=== PATIENT | male | born 1965 | race Caucasian/White ===

== ENCOUNTER → 2018-12-30 | Day surgery (SDC) | payer BC ==
[~2018-12-30] MED LIST: AMLODIPINE BESYL5 MG PO; FISH OIL 1,0001 EAC2 PO; FUROSEMIDE40 MG PO; KETAMINE HCL INJ 50 MG/ML 10 ML VIAL ONE; LIDOCAINE HCL 2% LOCAL INJ 5 ML SDV VIAL INJ ONE; LOSARTAN-HCTZ1 EAC1 PO; MIDAZOLAM HCL 2 MG/2 ML VIAL ONE; MULTI-VITAMIN1 EACH PO; POTASSIUM CHLO10 ME1 PO; PROPOFOL IV EMULSION 10 MG/ML 50 ML VIAL ONE; VIT C PO; VIT E PO
[2018-12-30 09:40] VITALS: BP 120/75
== END | disposition home or self-care (01) ==
LOC: OR 05:53
PROVIDERS: ATTEND Internal Medicine Gastroenterology
DX: Z12.11 Encounter for screening for malignant neoplasm of colon (principal); D12.3 Benign neoplasm of transverse colon; K64.8 Other hemorrhoids; Z71.3 Dietary counseling and surveillance; I10 Essential (primary) hypertension; E66.01 Morbid (severe) obesity due to excess calories; Z01.810 Encounter for preprocedural cardiovascular examination; Z68.43 Body mass index [BMI] 50.0-59.9, adult; Z80.0 Family history of malignant neoplasm of digestive organs
CPT/HCPCS: 45385; 93005; J2001; J2250; J2704

== ENCOUNTER 2019-10-03 06:45 | Inpatient (IN) | payer BC ==
[2019-09-28 12:53] LABS: BASOPHILS # (AUTO) 0.1 (0.0-0.1); BASOPHILS % 0.5 % (0.0-1.0); EOSINOPHILS # (AUTO) 0.1 (0.0-0.4); EOSINOPHILS % 1.1 % (0.0-6.0); HEMATOCRIT 47.1 % (38.2-49.6); HEMOGLOBIN 15.2 g/dL (14.0-18.0); LYMPHOCYTES # (AUTO) 2.3 (1.0-3.2); LYMPHOCYTES % 17.5 % (18.0-39.1); MEAN CORPUSCULAR HEMOGLOBIN 29.5 pg (28-32); MEAN CORPUSCULAR HGB CONC 32.3 g/dL (31-35); MEAN CORPUSCULAR VOLUME 91.3 fL (81-99); MONOCYTES # (AUTO) 1.1 (0.2-0.8); MONOCYTES % 8.4 % (4.4-11.3); NEUTROPHILS # (AUTO) 9.3 (2.1-6.9); NEUTROPHILS % 72.1 % (38.7-80.0); PLATELET COUNT 287 x10e3/uL (140-360); RED BLOOD COUNT 5.16 x10e6/uL (4.3-5.7); RED CELL DISTRIBUTION WIDTH 13.2 % (11.7-14.4)
[2019-09-28 13:12] LABS: ANION GAP 15.7 mmol/L (8-16); BLOOD UREA NITROGEN 20 mg/dL (7-26); BUN/CREATININE RATIO 18 (6-25); CALCIUM 9.6 mg/dL (8.4-10.2); CARBON DIOXIDE 27 mmol/L (22-29); CHLORIDE 98 mmol/L (98-107); CREATININE, SERUM 1.11 mg/dL (0.72-1.25); EST GLOMERULAR FILTRATION RATE > 60 ML/MIN (60-); GLUCOSE 86 mg/dL (74-118); POTASSIUM 3.7 mmol/L (3.5-5.1); SODIUM 137 mmol/L (136-145)
[~2019-10-03] VITALS: Ht 188 cm; Wt 186.2 kg
[~2019-10-03 06:45] MED LIST changes: -KETAMINE HCL INJ 50 MG/ML 10 ML VIAL ONE; -LIDOCAINE HCL 2% LOCAL INJ 5 ML SDV VIAL INJ ONE; -MIDAZOLAM HCL 2 MG/2 ML VIAL ONE; -PROPOFOL IV EMULSION 10 MG/ML 50 ML VIAL ONE; +ULORIC40 MG PO
--- OUTSIDE RECORDS SUMMARY | 2019-10-03 06:53 | XMS REPORT ---
Author Author [facility] Address Unknown Phone Unavailable Care Team Providers Care Dean Name Role Phone Unavailable Unavailable Payers Payer Name Policy Type Policy Number Effective Date Expiration Date Problems This patient has no known problems. Allergies, Adverse Reactions, Alerts This patient has no known allergies or adverse reactions. Medications This patient has no known medications. Results Test Description Test Time Test Comments Text Results Atomic Results Result Comments - XR CONT ENEMA W/WO KUB 2019-04-08 11:10:00 FAX: Tye Morrell [phone] [place]: St: REG FAX: Sal Norton MD [phone] Name: JUAN MIGUEL SAMANO [facility] : 1965 Age/S: 53/M [address] [facility] Unit #: [id number] Loc: [place] [address] Phys: Tye Torres MD Acct: [id number] Dis Date: Status: REG CLI PHONE #: [phone] Exam Date: 04/08/2019 1015 FAX #: [phone] Reason: BENING NEOPLASM OF COLON EXAMS: CPT CODE: [id number] XR CONT ENEMA W/WO KUB 95525 TECHNIQUE - XR CONT ENEMA W/WO KUB . COMPARISON: None provided. HISTORY: 53 years Male BENING NEOPLASM OF COLON FINDINGS: Double contrast enema is performed. Few diverticula most prominent sigmoid colon. No definite lesions in the colon. No evidence of colonic stricture. Exam is limited secondary to patient body habitus. IMPRESSION: Double contrast enema is performed. Few diverticula most prominent sigmoid colon. No definite lesions in the colon. No evidence of colonic stricture. Exam is limited secondary to patient body habitus. at 1110 Reported and signed by: Yfn De La Rosa M.D. CC: Tye Torres MD; Sal Wilks MD Technologist: Linette Rosas; STUDENT TECHNOLOGIST Trnscrd Date/Time/By: 04/08/2019 (1110) : By: EfraínNATAN Orig Print D/T: S: 04/08/2019 (0833) PAGE 1 Signed Report
[2019-10-03] MEDS ORDERED: CEFAZOLIN SOD 1 GM/NS 50ML 150 ML IV ONE (07:17)
[2019-10-03] MEDS ORDERED: ACETAMINOPHEN 1000 MG/100 ML 100 ML IV ONE (07:31)
[2019-10-03] MEDS ORDERED: SCOPOLAMINE 1.5 MG PATCH ONE (07:32)
[2019-10-03] MEDS ORDERED: SUGAMMADEX SODIUM 200 MG/2 ML VIAL IV ONE (07:32)
[2019-10-03] MEDS ORDERED: LIDOCAINE HCL (LTA) 4 ML SOLN ONE (07:32)
[2019-10-03] MEDS ORDERED: BUPIVACAINE 0.25% 30ML SDV INJ ONE (09:18)
[2019-10-03] MEDS ORDERED: HYDROGEN PEROXIDE 120 ML BTL ONE (09:18)
[2019-10-03] MEDS ORDERED: MORPHINE SULFATE 2 MG/ML SYR 1ML IV PRN (09:30)
[2019-10-03] MEDS ORDERED: SCOPOLAMINE 1.5 MG PATCH TOP SCH (09:30)
[2019-10-03] MEDS ORDERED: ONDANSETRON HCL INJ 2MG/ML 2ML 2 MG/ML VIAL ONE ×2 (12:52→18:29)
[2019-10-03] MEDS ORDERED: METOCLOPRAMIDE HCL 10 MG/2ML VIAL ONE (12:52)
--- NOTE | 2019-10-03 13:32 | NUR ---
Pt arrived to unit via bed, with assist x2. IV to R inner arm, patent, no redness or swelling to insertion site. Pt A&O x3, mild SOB noted, NC at 2LPM. SCD and FORTUNATO hose to BLE. 6 Lap sites to ABD. Call light within reach, bed in lowest position.
[2019-10-03] MEDS: LACTATED RINGER'S 1,000 ML IV SCH ×2 (13:48→17:32)
[2019-10-03] MEDS: ONDANSETRON HCL INJ 2MG/ML 2ML 2 MG/ML VIAL IV PRN (13:48)
[2019-10-03 13:54] VITALS: BP 177/108
[2019-10-03 14:07] VITALS: BP 177/108
[2019-10-03 14:15] VITALS: BP 177/108
[2019-10-03 14:16] VITALS: BP 177/108
[2019-10-03] MEDS ORDERED: FUROSEMIDE 40 MG TAB PO SCH (14:30)
[2019-10-03] MEDS ORDERED: HYDRALAZINE HCL 20 MG/ML VIAL IV PRN (14:30)
[2019-10-03] MEDS ORDERED: FEBUXOSTAT 80 MG TAB PO PRN (14:30)
[2019-10-03] MEDS ORDERED: losartan/HCTZ PO (14:32)
[2019-10-03] MEDS ORDERED: FUROSEMIDE 20 MG TAB PO PRN (14:45)
--- NOTE | 2019-10-03 17:13 | Operative Report ---
DATE OF PROCEDURE: 10/03/2019 SURGEON: Antonio Wallis MD PREOPERATIVE DIAGNOSES: 1. Morbid obesity, BMI 56. 2. Hypertension. 3. Ventral hernia. POSTOPERATIVE DIAGNOSES: 1. Morbid obesity, BMI 56. 2. Hypertension. 3. Ventral hernia. PREOPERATIVE INDICATION: 1. Treat disease, prevent complications related to comorbid conditions of obesity. 2. Prevent complications related to ventral hernia. PROCEDURES: 1. Laparoscopic Chriss-en-Y gastric bypass. 2. Laparoscopic ventral hernia repair. ANESTHESIA: General. CONFORMAL PAD FORMER: Neftaly Philip, surgical asst (needed due to complexity of case). FLUIDS: 1 L of crystalloid. ESTIMATED BLOOD LOSS: 20 mL. DRAINS: None. COMPLICATIONS: None. SPECIMENS: Incarcerated omentum. GRAFTS: None. FINDINGS: 1. Normal upper GI anatomy. 2. Large ventral hernia. 3. Negative intraoperative EGD leak test. PROCEDURE IN DETAIL: The patient was brought to the operating room and was intubated under general endotracheal anesthesia. He was positioned in supine with both arms abducted and all pressure points were appropriately padded. He was sterilely prepped and draped in the usual fashion. A preprocedure pause was performed identifying the patient, use of perioperative antibiotics, intended procedure, and staff surgeon. Access was gained via a 5 mm left subcostal incision using a Veress needle. Abdomen was insufflated. Four additional trocars were placed in the standard position. A liver retractor was used to expose the stomach. I then entered the gastrohepatic ligament using the [place] LigaSure device and incised this up to the level of the lesser curvature of the stomach. The descending branches of the left gastric vessels were ligated with the [place] LigaSure device. I then constructed gastric pouch by firing the stapler 1st across the lesser curvature in a 90 degrees angle using the 60 mm purple load WebChalet stapling device. I then marched up along the greater curvature of stomach to make the pouch around 20 mL in volume by resecting stapling the pouch up to the left sami of the diaphragm. I then over-sewed part of the proximal staple line with 2-0 Surgidac suture in imbricating fashion. Next, I reduced the large ventral hernia with incarcerated omentum in order to free up the small intestine and expose the small intestine. 50 cm distal to the ligament of Treitz, I divided the bowel with a thompson load and ligated the mesentery down to its base with the Harmonic Scalpel. Next, I measured 150 cm of the Chriss limb and did an end-to-side jejunojejunostomy with a thompson load stapler, the common enterotomy site was also stable with a thompson load. Anti-obstruction suture was placed at either end of the anastomosis. The mesenteric defect was closed with 2-0 Surgidac suture in a continuous fashion. I then split some of the omentum and brought up the Chriss limb and did a posterior layer between the Chriss limb and the gastric pouch with 2-0 Surgidac suture in a Lembert fashion. Enterotomies were made in a linear anastomosis constructed for the gastrojejunostomy at about 3 cm with a purple load stapler. Common enterotomy site was over-sewn with 2-0 Polysorb suture beginning on either end of the anastomosis and tying this in the middle over an adult-sized endoscope, which was used as a sizing bougie. I then over-sewed the suture line with 2-0 Surgidac suture in imbricating fashion. We then conducted intraoperative EGD leak test, no leaks were identified. Next, I placed an omental patch over the anastomosis with 2-0 Surgidac suture and closed Cosby defect with 2-0 Surgidac suture in a continuous fashion. I then repaired the incarcerated ventral hernia with number one PDS suture using a Angel Luis Condon technique in a rxgzaz-ul-qkeah fashion. We removed the incarcerated omentum, which had been resected off with an EndoCatch bag and closed the large port site with 0 Vicryl suture using a Angel Luis Condon technique. We then verified hemostasis, removed the liver retractor and desufflated the abdomen incision sites. The trocars were then removed. Incision sites were closed with 4-0 Monocryl suture in a subcuticular fashion. Dermabond dressings were applied. A 0.25% bupivacaine was used both at the preperitoneal incision sites. The patient tolerated the procedure well. Type of wound was type 2, clean, contaminated. Antonio Wallis MD Farnaz/CLARENCE /[id number]
[2019-10-03] MEDS ORDERED: DEXAMETHASONE SOD PHOS INJ 4 MG/ML VIAL ONE (18:29)
[2019-10-03] MEDS ORDERED: ROCURONIUM BROMIDE 10 MG/ML 5ML VIAL ONE (18:29)
[2019-10-03] MEDS ORDERED: LIDOCAINE HCL 2% LOCAL INJ 5 ML SDV VIAL INJ ONE (18:29)
[2019-10-03] MEDS ORDERED: PHENYLEPHRINE HCL 1% 10 MG/ML VIAL ONE (18:29)
[2019-10-03] MEDS ORDERED: PROPOFOL IV EMULSION 10 MG/ML 20 ML VIAL ONE (18:29)
[2019-10-03] MEDS ORDERED: SEVOFLURANE INHAL SOLN 250 ML PEN BTL ONE (18:29)
[2019-10-03 18:34] VITALS: BP 181/99
[2019-10-03] MEDS ORDERED: FENTANYL CITRATE/PF 100MCG/2 ML INJ ONE (18:42)
[2019-10-03] MEDS ORDERED: MIDAZOLAM HCL 2 MG/2 ML VIAL ONE (18:42)
--- NOTE | 2019-10-03 19:00 | NUR ---
RECEIVED PATIENT IN BEDSIDE REPORT. PATIENT RESTING IN CHAIR AT THIS TIME. MILD PAIN REPORTED, 3/10, NO REQUESTS FOR PAIN MEDICATION. 6 TROCHAR SITES C/D/I, COVERED WITH DERMABOND. NO S&S OF DISTRESS NOTED. BED LOCKED IN LOWEST POSITION, SIDE RAILS UPX2, CALL LIGHT IN REACH.
[2019-10-03 20:00] VITALS: BP 136/94
[2019-10-03] MEDS: ENOXAPARIN SOD INJ 40 MG/0.4 ML SYR SC SCH (21:54)
[2019-10-04] VITALS: BP 131/85
[2019-10-04 00:12] VITALS: BP 136/96
--- NOTE | 2019-10-04 01:23 | NUR ---
PATIENT AMBULATING AT THIS TIME. STEADY GAIT NOTED.
[2019-10-04 04:00] VITALS: BP 135/77
[2019-10-04] MEDS: LACTATED RINGER'S 1,000 ML IV SCH ×2 (04:44→09:27)
[2019-10-04] MEDS: ONDANSETRON HCL INJ 2MG/ML 2ML 2 MG/ML VIAL IV PRN (05:01)
--- NOTE | 2019-10-04 05:20 | NUR ---
ADMINISTERED ZOFRAN 4MG AT 0501. CALLED TO PATIENT'S ROOM AT THIS TIME. PATIENT HAD PROJECTILE VOMITED BROWN COLORED, HOMOGENOUS EMESIS ON BED AND FLOOR. ROUGHLY 30 ML OF VOMIT CAUGHT IN EMESIS BAG. PATIENT CLEANED THOROUGHLY. PATIENT STATES HE FEELS MUCH BETTER NOW THAT IT IS OUT, NO NAUSEA REMAINS AT THIS TIME. WILL CONTINUE TO MONITOR.
[2019-10-04 05:41] LABS: BASOPHILS % 0.2 % (0.0-1.0); HEMATOCRIT 42.2 % (38.2-49.6); HEMOGLOBIN 13.7 g/dL (14.0-18.0); LYMPHOCYTES # (AUTO) 1.6 (1.0-3.2); LYMPHOCYTES % 13.4 % (18.0-39.1); MEAN CORPUSCULAR HEMOGLOBIN 29.7 pg (28-32); MEAN CORPUSCULAR HGB CONC 32.5 g/dL (31-35); MEAN CORPUSCULAR VOLUME 91.3 fL (81-99); MONOCYTES % 7.8 % (4.4-11.3); NEUTROPHILS # (AUTO) 9.6 (2.1-6.9); NEUTROPHILS % 78.1 % (38.7-80.0); PLATELET COUNT 262 x10e3/uL (140-360); RED BLOOD COUNT 4.62 x10e6/uL (4.3-5.7); RED CELL DISTRIBUTION WIDTH 13.3 % (11.7-14.4)
[2019-10-04 05:59] LABS: ALBUMIN 3.3 g/dL (3.5-5.0); ALBUMIN/GLOBULIN RATIO 0.8 (0.8-2.0); ANION GAP 17.1 mmol/L (8-16); CALCIUM 8.9 mg/dL (8.4-10.2); CREATININE, SERUM 1.32 mg/dL (0.72-1.25); PHOSPHORUS 2.4 MG/DL (2.3-4.7); POTASSIUM 4.1 mmol/L (3.5-5.1)
--- NOTE | 2019-10-04 07:00 | NUR ---
RECEIVED PATIENT RESTING IN RECLINER, NO SIGNS OF DISTRESS. WHEELS LOCKED. CALL LIGHT IN REACH WILL CONTINUE TO MONITOR PATIENT.
[2019-10-04] MEDS ORDERED: HYDROCODONE/APAP 7.5MG-325MG 1 EA TAB PO PRN (07:30)
--- NOTE | 2019-10-04 07:51 | NUR ---
PROGRESS NOTE S: No major complaints O: AF,VSS General- no acute distress Abd- soft, incisions c/d/i A/P: POD 1, s/p Lap dot en y gastric bypass with ventral hernia repair -Clears, ambulate, IS, OOB to chair, dc home if doing well
[2019-10-04] MEDS: ENOXAPARIN SOD INJ 40 MG/0.4 ML SYR SC SCH (08:01)
[2019-10-04 08:13] VITALS: BP 143/74
[2019-10-04 08:20] VITALS: BP 143/74
[2019-10-04] MEDS ORDERED: HYDROCHLOROTHIAZIDE 25 MG TAB PO SCH (09:00)
[2019-10-04] MEDS ORDERED: LOSARTAN POTASSIUM 100 MG TAB PO SCH (09:00)
--- NOTE | 2019-10-04 10:20 | NUR ---
Nutrition Screen Note RD Recommendation for Physician: - ADAT to full liquids per MD Plan of Care: RD following, monitoring for tolerance and adequacy - Diet education provided 10/04 Nutrition reason for involvement: MD Consult- gastric bypass post op diet education Primary Diagnose(s): gastric bypass surgery- dot-en-y PMH: [facility] Ht: [facility] in Wt: 410.5 lb BMI: 52.7 kg/m2 IBW: [address] Assessment: (10/04) 54 YOM admitted for dot-en-y gastric bypass. Pt seen today per MD consult for diet education. Pt receptive to diet education at time of visit, discussed progression of diet, recommended supplements, and vitamin and mineral supplementation. All questions and concerns addressed at time of visit. Chart reviewed. Labs and meds reviewed. Will continue to monitor. Current Diet: Bariatric clear liquids Malnutrition Evaluation (10/04/19) The patient does not meet criteria for a specified degree of malnutrition at this time. Will re-evaluate at follow-up as appropriate. Diet Education Needs Assessment: Diet education indicated, pt receptive and diet education provided 10/04. Learner(s): pt, significant other Barriers: none Cultural/Language Modifications: none Readiness: ready Method: handouts, discussion Topics: post op gastric bypass diet progression, protein supplementation, vitamin and mineral supplementation Understanding/Compliance: good Diet tolerance: tolerating CL diet Nutrition Care Level: Low Signed: Smiley Mitchell RD, LD, [facility]
[2019-10-04 11:13] VITALS: BP 151/87
[2019-10-04] MEDS ORDERED: TYLENOL WITH C1 EACH PO (12:22)
[2019-10-04] MEDS ORDERED: ZOFRAN4 MG PO (12:23)
--- NOTE | 2019-10-04 13:10 | NUR ---
REMOVED PATIENTS IV. CATHETER TIP INTACT AND PRESSURE DRESSING APPLIED.
--- NOTE | 2019-10-04 13:26 | NUR ---
PATIENT DISCHARGED FROM FACILITY. PATIENT GATHERED ALL PERSONAL BELONGINGS, DISCHARGE INSTRUCTIONS, AND FOLLOW UP INFORMATION. PATIENT LEFT UNIT IN WHEELCHAIR AND WENT HOME VIA PRIVATE AUTO. NO SIGNS OF DISTRESS WHEN LEAVING FACILITY.
== END 2019-10-04 13:35 | disposition home or self-care (01) | DRG 620 ==
LOC: OR 06:45 → PACU V 12:45 → OBSVTOIN 12:45 → MED/SURG 13:31
PROVIDERS: ADMIT Surgery; ATTEND Surgery
PROC: 0WQF4ZZ Repair Abdominal Wall, Percutaneous Endoscopic Approach (ICD-10-PCS; 2019-10-03)
PROC: 0D164ZA Bypass Stomach to Jejunum, Percutaneous Endoscopic Approach (ICD-10-PCS; principal; 2019-10-03 09:00)
DX: E66.01 Morbid (severe) obesity due to excess calories (principal); K43.6 Other and unspecified ventral hernia with obstruction, without gangrene; Z68.43 Body mass index [BMI] 50.0-59.9, adult; I10 Essential (primary) hypertension
CPT/HCPCS: 36415; 80048; 80053; 83735; 84100; 85025; 93005; J0360; J0690; J1100; J1650; J2001; J2250; J2270; J2370; J2405; J2765; J3010; J7121

== ENCOUNTER 2021-05-25 05:31 | Inpatient (IN) | payer BC ==
[~2021-05-25] VITALS: Ht 188 cm; Wt 131.5 kg
[~2021-05-25 05:31] MED LIST changes: +TYLENOL WITH C1 EACH PO; +ZOFRAN4 MG PO; +losartan/HCTZ PO
[2021-05-25] MEDS ORDERED: SODIUM CHLORIDE 0.9% 1000ML 1,000 ML IV STA (05:35)
[2021-05-25] MEDS ORDERED: ONDANSETRON HCL INJ 2MG/ML 2ML 2 MG/ML VIAL IV STA (05:35)
[2021-05-25] MEDS ORDERED: MORPHINE SULFATE INJ 4 MG/ML INJ 1ML IV STA (05:44)
[2021-05-25 06:19] LABS: BASOPHILS # (AUTO) 0.1 (0.0-0.1); BASOPHILS % 0.4 % (0.0-1.0); EOSINOPHILS % 0.2 % (0.0-6.0); HEMATOCRIT 48.2 % (38.2-49.6); HEMOGLOBIN 16.4 g/dL (14.0-18.0); LYMPHOCYTES # (AUTO) 1.9 (1.0-3.2); MEAN CORPUSCULAR HEMOGLOBIN 31.4 pg (28-32); MEAN CORPUSCULAR VOLUME 92.2 fL (81-99); MONOCYTES # (AUTO) 0.9 (0.2-0.8); MONOCYTES % 6.6 % (4.4-11.3); NEUTROPHILS # (AUTO) 10.9 (2.1-6.9); NEUTROPHILS % 78.4 % (38.7-80.0); PLATELET COUNT 211 x10e3/uL (140-360); RED BLOOD COUNT 5.23 x10e6/uL (4.3-5.7); RED CELL DISTRIBUTION WIDTH 12.7 % (11.7-14.4)
[2021-05-25 06:23] LABS: PARTIAL THROMBOPLASTIN TIME 30.3 seconds (23.8-35.5); PROTHROMBIN TIME 13.8 seconds (11.9-14.5)
[2021-05-25 06:36] LABS: ALANINE AMINOTRANSFERASE 13 IU/L (0-55); ALBUMIN 4.4 g/dL (3.5-5.0); ALBUMIN/GLOBULIN RATIO 1.2 (0.8-2.0); ALKALINE PHOSPHATASE 163 IU/L (40-150); AMYLASE 40 U/L (25-125); ANION GAP 17.9 mmol/L (8-16); BLOOD UREA NITROGEN 12 mg/dL (7-26); BUN/CREATININE RATIO 11 (6-25); CALCIUM 9.4 mg/dL (8.4-10.2); CARBON DIOXIDE 21 mmol/L (22-29); CHLORIDE 105 mmol/L (98-107); CREATINE KINASE 65 IU/L (30-200); CREATININE, SERUM 1.14 mg/dL (0.72-1.25); EST GLOMERULAR FILTRATION RATE 67 ML/MIN (60-); GLUCOSE 127 mg/dL (74-118); LIPASE 17 U/L (8-78); POTASSIUM 3.9 mmol/L (3.5-5.1); SODIUM 140 mmol/L (136-145)
[2021-05-25 06:49] LABS: CLARITY,URINE CLEAR (CLEAR); COLOR,URINE YELLOW (YELLOW); KETONES,URINE NEGATIVE (NEGATIVE); LEUKOCYTE ESTERASE ,URINE NEGATIVE (NEGATIVE); NITRITE,URINE NEGATIVE (NEGATIVE); PROTEIN,URINE DIPSTICK 1+ (NEGATIVE); URINE UROBILINOGEN 0.2 mg/dL (0.2 - 1)
[2021-05-25 06:50] LABS: BACTERIA,URINE MANY /HPF; EPITHELIAL CELLS,URINE FEW /LPF; MUCUS,URINE FEW (RARE); RBC,URINE 0-5 /HPF (0-5); WBC,URINE (MAN) 0-5 /HPF (0-5)
[2021-05-25] MEDS ORDERED: SODIUM CHLORIDE 0.9% 50ML 50 ML ONE (07:03)
[2021-05-25] MEDS ORDERED: IOPAMIDOL 370 MG/ML 200 ML INFUS..BTL INJ ONE (07:04)
[2021-05-25] MEDS ORDERED: MORPHINE SULFATE INJ 4 MG/ML INJ 1ML IV PRN (08:00)
[2021-05-25] MEDS: PIPERACILLIN/TAZOBACTAM 3.375 GM in SODIUM CHLORIDE 0.9% 50ML 50 ML IV SCH ×3 (08:00→21:00)
[2021-05-25] MEDS ORDERED: BENZOCAINE/TETRACAINE/BUTAMBEN AERO SPRAY 56 GM CAN TOP ONE (08:00)
[2021-05-25] MEDS: SODIUM CHLORIDE 0.9% 1000ML 1,000 ML IV SCH ×2 (08:00→16:15)
[2021-05-25] MEDS ORDERED: ONDANSETRON HCL INJ 2MG/ML 2ML 2 MG/ML VIAL IV PRN (08:00)
[2021-05-25] MEDS ORDERED: MIDAZOLAM HCL 2 MG/2 ML VIAL ONE (13:25)
[2021-05-25] MEDS ORDERED: FENTANYL CITRATE/PF 100MCG/2 ML INJ ONE (13:25)
[2021-05-25 14:49] VITALS: BP 179/97
[2021-05-25 14:50] VITALS: BP 179/97
[2021-05-25 14:52] VITALS: BP 179/97
[2021-05-25 20:00] VITALS: BP 148/82
[2021-05-25 21:11] VITALS: BP 148/82
[2021-05-26] VITALS (8 sets, daily range): BP systolic 144–178; BP diastolic 86–101
[2021-05-26] MEDS: SODIUM CHLORIDE 0.9% 1000ML 1,000 ML IV SCH ×3 (01:02→14:51)
[2021-05-26] MEDS: HYDRALAZINE HCL 20 MG/ML VIAL IV PRN ×2 (01:02→06:20)
[2021-05-26] MEDS: PIPERACILLIN/TAZOBACTAM 3.375 GM in SODIUM CHLORIDE 0.9% 50ML 50 ML IV SCH ×4 (02:10→19:50)
[2021-05-26 06:14] LABS: BASOPHILS % 0.6 % (0.0-1.0); EOSINOPHILS # (AUTO) 0.2 (0.0-0.4); EOSINOPHILS % 2.9 % (0.0-6.0); HEMOGLOBIN 13.7 g/dL (14.0-18.0); LYMPHOCYTES % 31.9 % (18.0-39.1); MEAN CORPUSCULAR HEMOGLOBIN 30.6 pg (28-32); MEAN CORPUSCULAR HGB CONC 32.6 g/dL (31-35); MEAN CORPUSCULAR VOLUME 93.8 fL (81-99); MONOCYTES # (AUTO) 0.5 (0.2-0.8); MONOCYTES % 8.3 % (4.4-11.3); NEUTROPHILS # (AUTO) 3.5 (2.1-6.9); PLATELET COUNT 176 x10e3/uL (140-360); RED BLOOD COUNT 4.48 x10e6/uL (4.3-5.7); RED CELL DISTRIBUTION WIDTH 12.8 % (11.7-14.4)
[2021-05-26 06:39] LABS: ALBUMIN 3.3 g/dL (3.5-5.0); ALBUMIN/GLOBULIN RATIO 1.2 (0.8-2.0); ANION GAP 10.8 mmol/L (8-16); CALCIUM 8.1 mg/dL (8.4-10.2); CREATININE, SERUM 0.9 mg/dL (0.72-1.25); POTASSIUM 3.8 mmol/L (3.5-5.1)
[2021-05-26] MEDS ORDERED: BUPIVACAINE HCL 0.5% INJ 30 ML VIAL INJ ONE (07:41)
[2021-05-26] MEDS ORDERED: LIDOCAINE 1% W/EPINEPHRINE 20 ML VIAL ONE (08:20)
[2021-05-26] MEDS ORDERED: ONDANSETRON HCL INJ 2MG/ML 2ML 2 MG/ML VIAL ONE ×2 (10:09→13:45)
[2021-05-26] MEDS ORDERED: POVIDONE IODINE 0.05% 0.05 % ML PO ONE (13:45)
[2021-05-26] MEDS ORDERED: ROCURONIUM BROMIDE 10 MG/ML 5ML VIAL IV ONE (13:45)
[2021-05-26] MEDS ORDERED: DEXAMETHASONE SOD PHOS INJ 4 MG/ML VIAL ONE (13:45)
[2021-05-26] MEDS ORDERED: DESFLURANE 240 ML BTL INH ONE (13:45)
[2021-05-26] MEDS ORDERED: LIDOCAINE HCL 2% LOCAL INJ 5 ML SDV VIAL INJ ONE (13:45)
[2021-05-26] MEDS ORDERED: GLYCOPYRROLATE INJ 0.2 MG/ML VIAL ONE (13:45)
[2021-05-26] MEDS ORDERED: NEOSTIGMINE 1 MG/ML 10ML VIAL ONE (13:45)
[2021-05-26] MEDS ORDERED: PROPOFOL IV EMULSION 10 MG/ML 20 ML VIAL ONE (13:45)
[2021-05-26] MEDS ORDERED: ACETAMINOPHEN 325 MG TAB PO PRN (15:45)
[2021-05-27] MEDS: SODIUM CHLORIDE 0.9% 1000ML 1,000 ML IV SCH ×2 (01:12→08:00)
[2021-05-27] MEDS: PIPERACILLIN/TAZOBACTAM 3.375 GM in SODIUM CHLORIDE 0.9% 50ML 50 ML IV SCH ×2 (02:00→08:00)
[2021-05-27 04:00] VITALS: BP 163/92
[2021-05-27 07:31] VITALS: BP 160/83
[2021-05-27 07:42] VITALS: BP 160/83
[2021-05-27] MEDS ORDERED: TYLENOL # 31 EA PO (10:51)
[2021-05-27 11:33] VITALS: BP 174/97
== END 2021-05-27 12:40 | disposition home or self-care (01) | DRG 355 ==
LOC: ER 05:36 → ERHOLD 08:03 → MED/SURG 14:17
PROVIDERS: ADMIT Internal Medicine; ATTEND Internal Medicine
PROC: 0WUF0JZ Supplement Abdominal Wall with Synthetic Substitute, Open Approach (ICD-10-PCS; principal; 2021-05-26 08:00)
DX: K43.0 Incisional hernia with obstruction, without gangrene (principal); I10 Essential (primary) hypertension; M10.9 Gout, unspecified; D64.9 Anemia, unspecified
CPT/HCPCS: 36415; 71045; 74177; 80053; 81001; 82150; 82550; 82553; 82948; 83690; 83735; 84484; 85025; 85610; 85730; 87040; 93005; 99285; C1781; J0360; J1100; J2001; J2250; J2270; J2405; J2543; J2710; J3010; J7030; Q9967; U0002

== ENCOUNTER 2022-01-15 05:26 | Emergency (ER) | payer BC ==
[~2022-01-15] VITALS: Ht 188 cm; Wt 131.5 kg
[~2022-01-15 05:26] MED LIST changes: +TYLENOL # 31 EA PO
== END 2022-01-15 08:01 | disposition home or self-care (01) ==
LOC: ER 05:32
DX: M25.522 Pain in left elbow (principal); M25.552 Pain in left hip; S50.02XA Contusion of left elbow, initial encounter; S70.02XA Contusion of left hip, initial encounter; W18.2XXA Fall in (into) shower or empty bathtub, initial encounter; Y93.E1 Activity, personal bathing and showering; Y92.002 Bathroom of unspecified non-institutional (private) residence as the place of occurrence of the external cause; I10 Essential (primary) hypertension; Z98.84 Bariatric surgery status
CPT/HCPCS: 72110; 99283